=== PATIENT | female | born 1985 | race Two or more races ===

== ENCOUNTER 2016-12-25 11:35 | Emergency (ER) | payer OTHER ==
--- NOTE | ~2016-12-25 | US98 ---
[facility] A Service of [facility] RADIOLOGY TEXT RESULTS PATIENT: KATJA CONTRERAS LOCATION: CFTX : 85 UNIT #: [id number] AGE: [address]: Pina Abraham APRN SEX: F ORDER DR: [id number] [facility] [address] [place], [place] [address] [id number] MR#: [id number] Acc #: [id number] NAME: KATJA CONTRERAS. : 1985 SEX: F STUDY DATE/TIME: 12/25/2016 12:49 UNIT: [facility] ROOM: STUDY DESCRIPTION: US Pelvic Non-OB Complete Attending Physician: Pina Abraham A.P.R.N. Referring Physician: No Primary Care Physician Ordering Physician: Ed Bola Carvalho M.D. Primary Care Physician: No Primary Care Physician MEDICAL IMAGING REPORT This report is preliminary unless electronic signature is present EXAM Pelvic ultrasound, 12/25/2016. HISTORY Painful intermittent bleeding x1 month. G4, P4, A0. TECHNIQUE Real-time ultrasonography of the pelvis performed transvaginally. Transvaginal imaging utilized for better visualization of uterine and adnexal structures. COMPARISON Obstetric ultrasound dated 09/04/2015. FINDINGS The uterus measures approximately 5.28 cm x 4.13 cm x 7.17 cm. Myometrium unremarkable. Endometrial echo complex measures 6-8 mm in thickness. No focal endometrial abnormalities seen. No fluid in the endometrial cavity. The right ovary measures 2.45 cm x 2.12 cm x 2.13 cm. It contains small follicular cysts. Arterial and venous flow noted in the right ovary. The left ovary measures 1.96 cm x 1.56 cm x 1.90 cm. Arterial and venous flow noted in the left ovary. No free fluid in the pelvis. IMPRESSION 1. Uterus normal in appearance. Myometrium unremarkable. Endometrial echo complex normal in appearance. 2. Bilateral ovaries normal in appearance. Small follicular cysts seen bilaterally. Arterial and venous flow in the bilateral ovaries. 3. No free fluid in pelvis. [facility] A Service of [facility] RADIOLOGY TEXT RESULTS PATIENT: KATJA CONTRERAS LOCATION: [facility] : 85 UNIT #: [id number] AGE: [address]: Pina Abraham APRN SEX: F ORDER DR: Dictated by... Syed Russo M.D. THIS IS AN ELECTRONICALLY VERIFIED REPORT Syed Russo M.D. at 12/29/2016 7:36 AM CHRISTIANE/karma TD: 12/25/2016 15:43 JOB #: [id number] MEDICAL IMAGING REPORT Page 1 of 1 COPY
[2016-12-25 11:33] LABS: BASOPHIL% 0.5 % (0-2.5); EOSINOPHIL# 0.1 X10e3 (0-0.7); HEMATOCRIT 38.9 % (35.0-45.0); HEMOGLOBIN 12.5 gm/dL (12.0-16.0); LYMPHOCYTE# 1.9 X10e3 (1.0-3.5); LYMPHOCYTE% 27.2 % (17.0-45.0); MEAN CELL VOLUME 89.2 FL (83-96); MEAN CORPUSCULAR HEMOGLOBIN 28.6 PG (28-34); MEAN CORPUSCULAR HGB CONC 32.1 g/dL (30-36); MEAN PLATELET VOLUME 9.1 FL (6.5-11.5); MONOCYTE# 0.3 X10e3 (0-1.0); MONOCYTE% 4.9 % (3.0-12.0); NEUTROPHIL# 4.7 X10e3 (1.5-7.1); NEUTROPHIL% 66.4 % (40-75); PLATELET COUNT 254 X10e3 (140-420); RED BLOOD COUNT 4.36 X10e (3.90-5.30); RED CELL DISTRIBUTION WIDTH 12.5 % (11.0-15.5)
[2016-12-25 11:36] LABS: URINE SOURCE CATH
[2016-12-25 11:37] LABS: DIFF IND NO
[2016-12-25 11:47] LABS: URINE APPEARANCE CLEAR; URINE BILIRUBIN NEG (NEG); URINE BLOOD 1+ (NEG); URINE COLOR YELLOW; URINE GLUCOSE NEG (NEG); URINE KETONE NEG (NEG); URINE LEUKOCYTE ESTERASE TRACE (NEG); URINE NITRATE NEG (NEG); URINE PH 5.5 (5-8); URINE PROTEIN NEG (NEG); URINE SPECIFIC GRAVITY 1.024 (1.003-1.035)
[2016-12-25 11:50] LABS: CULTURE INDICATED? YES; URINE BACTERIA AUWI NEG (NEGATIVE); URINE SQUAMOUS EPITHELIAL CELL OCC /[HPF]
[2016-12-25 12:08] LABS: CALCIUM SERUM 8.8 mg/dL (8.4-10.2); CREATININE SERUM 0.5 mg/dL (0.6-1.4); POTASSIUM 3.7 mmol/L (3.5-5.1)
[2016-12-28 23:34] LABS: CHLAMYDIA TRACH Not Detected (Not Detected); N GONOR Not Detected (Not Detected)
== END 2016-12-25 14:50 | disposition home or self-care (01) ==
LOC: CFTX 11:35
PROVIDERS: Nurse Practitioner
DX: N93.8 Other specified abnormal uterine and vaginal bleeding (principal); I10 Essential (primary) hypertension
CPT/HCPCS: 36415; 51701; 76830; 76856; 80048; 81003; 84703; 85025; 87086; 87491; 87591; 87808; 87905; 99284